=== PATIENT | female | born 1985 | race Caucasian/White ===

== ENCOUNTER 2019-02-06 18:11 | Emergency (ER) | payer OTHER ==
[~2019-02-06] VITALS: Ht 165.1 cm; Wt 184.6 kg
[2019-02-06 18:17] VITALS: BP 143/92
--- NOTE | 2019-02-06 18:30 | NUR ---
PT C/O R SIDED FACIAL SWELLING STARTING TODAY AROUND 4AM. PT REPORTS EATING A PIECE OF CHOCOLATE. PT REPORTS NUMBNESS/TINGLING, DENIES PAIN. PT TOOK BENADRYL AND IBUPROFEN TODAY, BENADRYL 6:30AM, 1:45PM & IBUPROFEN 8:00AM. DENIES N/V/D; PT DENIES ANY FEVER, CP, SOB, OR COUGH AT THIS TIME; PATIENT STATES PAIN OF 0/10 AT THIS TIME; VSS; PATIENT POSITIONED FOR COMFORT; HOB ELEVATED; BEDRAILS UP X1; BED DOWN. ER MD MADE AWARE OF PT STATUS.
[2019-02-06] MEDS ORDERED: DEXAMETHASONE 10 MG/ML VIAL PO ONE (18:40)
[2019-02-06 19:06] VITALS: BP 124/79
--- NOTE | 2019-02-06 19:07 | NUR ---
Patient discharged with v/s stable. Written and verbal after care instructions given and explained. Patient alert, oriented and verbalized understanding of instructions. Ambulatory with steady gait. All questions addressed prior to discharge. ID band removed. Patient advised to follow up with PMD. Rx of Prednisone and Benadryl given. Patient educated on indication of medication including possible reaction and side effects. Opportunity to ask questions provided and answered.
== END 2019-02-06 19:07 | disposition home or self-care (01) ==
LOC: MED 18:11
DX: T78.40XA Allergy, unspecified, initial encounter (principal); X58.XXXA Exposure to other specified factors, initial encounter
CPT/HCPCS: 99283; J1100; Q0163